=== PATIENT | female | born 1955 | race Caucasian/White ===

== ENCOUNTER 2017-06-24 11:47 | Emergency (ER) | payer OTHER, BC ==
[2017-06-24 12:01] VITALS: O2SAT 97
[2017-06-24 13:48] VITALS: RESP 18
--- NOTE | 2017-06-24 14:33 | EDPHY ---
H & P Stated Complaint: dark stools Time Seen by Provider: 06/24/17 14:13 HPI/ROS: CHIEF COMPLAINT: Black stool HISTORY OF PRESENT ILLNESS: The patient is a 62 y/o female with multiple sclerosis complaining of black stool and esophageal burning following coarse of Solumedrol last week. Early last week. While the patient was in [place], she woke up with urinary incontinence and paresthesias across her lower abdomen ; she states, "I can feel 10% of my bowel and bladder." "When I pee I have to sit every 2 hours and let the pee fall out." She was evaluated at a hospital in [place]. She reports that they did do imaging studies of MRIs of the entire spine and had no acute abnormalities. She then drove 30 hours from [place] to home and was seen at the [facility] at [facility] where she was evaluated for this. They performed multiple MRIs and treated her for a UTI with Ceftin and prescribed 1000mg orally Solumedrol on Friday, , and Friday and then told to return in 2 weeks. Patient reports that the oral Solu-Medrol caused a burning sensation from the esophagus into her abdomen. She was taking Pepto-Bismol to treat this discomfort. She now has noticed that her stools have been a "dark and charcoal- y ". Patient's complaints of paresthesias in the lower abdomen as well as difficulties with her bowel or bladder have not improved with the Solu-Medrol bolus. She describes little to no sensation in her bowel or bladder and has had to digitally remove stool. In general, for the last 4 days she has felt exhausted, dizzy, lightheaded, and near-syncopal when standing. Due to financial concerns, the patient tells me on number of occasions that she simply wants to be checked for possible GI hemorrhage. She will follow up with her MS physician regarding her neurologic symptoms of paresthesias and bowel or bladder difficulties. No aspirin or anticoagulant use, history of ulcer disease or reflux, or cardiac disease history. Reports a normal colonoscopy in the last few years. No fever, chills, chest pain, shortness of breath, palpitations, vomiting, diarrhea, headache, lightheadedness. REVIEW OF SYSTEMS: Aside from elements discussed in the HPI, a comprehensive 10-point review of systems was reviewed and is negative. PAST MEDICAL HISTORY: 1. Multiple Sclerosis - Lorazepam, Baclofen 2. Hypothyroidism 3. UTI SOCIAL HISTORY: Lives alone. Disabled. Recently moved to [place] from [place]. VITAL SIGNS: Reviewed by me. Vital signs are stable. GENERAL: Well-developed, well-nourished, resting comfortably in no respiratory distress. HEENT: Atraumatic. Eyes: No icterus, no injection. Mouth: moist mucous membranes. No pallor. No erythema or lesions. Neck: supple with no adenopathy. LUNGS: Clear to auscultation bilaterally, no wheezes, rhonchi or rales. CARDIAC: Regular rate and rhythm, no rubs, murmurs or gallops. ABDOMEN: Soft, nontender, nondistended, bowel sounds normal. RECTAL: No hemorrhoids. Markedly diminished rectal tone. No juan francisco blood. Small amount of dark black stool on the glove. BACK: No CVA tenderness. EXTREMITIES: No trauma. No edema. Range of motion is normal throughout. NEURO: Alert and oriented, grossly nonfocal. SKIN: Warm and dry, no rash. PSYCHIATRIC: Normal mentation, no agitation. Portions of this note were transcribed by a medical coding technician. I personally performed a history, physical exam, medical decision making, and confirmed accuracy of information the transcribed note. 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 - Social History Smoking Status: Never smoked Constitutional: Initial Vital Signs Temperature (C) 36.6 C 06/24/17 11:58 Heart Rate 95 06/24/17 11:58 Respiratory Rate 16 06/24/17 11:58 Blood Pressure 121/67 H 06/24/17 11:58 O2 Sat (%) 97 06/24/17 11:58 O2 Delivery Mode Room Air Allergies/Adverse Reactions: carbamazepine Allergy (Verified 10/25/15 10:12) gabapentin Allergy (Verified 10/25/15 10:12) latex Allergy (Verified 10/25/15 10:12) Sulfa (Sulfonamide Antibiotics) Allergy (Verified 06/24/17 11:56) Home Medications: Medication Instructions Recorded THYROID 08/10/14 LORAZEPAM 04/10/15 Baclofen 06/24/17 Ceftin 06/24/17 Oxybutynin 06/24/17 Prozac 10 MG (*) 06/24/17 Medical Decision Making ED Course/Re-evaluation: This is a 62 y/o female with multiple sclerosis who presents for evaluation of black stool over the last couple days since receiving oral high Solumedrol doses for abdominal and genital paresthesias last week and taking Peptobismol for reflux-like symptoms. Her rectal exam reveals no juan francisco blood or melena, but she has no rectal tone. She is declining work up here for anything other than the black stool. Plan for occult stool only. Occult stool is negative. Black stool likely due to her Peptobismol use. Reevaluated patient and again offered further investigation into her paresthesias and weakness, which she declined. I did discuss with the patient my concerns regarding her diminished rectal tone, and saddle anesthesia and paresthesias. Per her report she had an MRI performed at [facility] which did not demonstrate any acute abnormalities. She plans to call her MS specialist today to arrange follow up in the next 1-2 days. She is a competent decision maker. She understands that cauda equina as in the differential and that her condition could be quite serious and irreversible. Return precautions discussed. She is comfortable with this plan. Differential Diagnosis: Differential diagnoses for the patient's symptom complex was considered including but not limited to upper GI hemorrhage, lower GI hemorrhage, reflux, dark stool stool which is not Hemoccult-positive, melena, MS flare, cauda equina syndrome. Departure - Departure Disposition: Home, Routine, Self-Care Clinical Impression: Black stool Condition: Good Instructions: Bismuth Subsalicylate (By mouth) Additional Instructions: The emergency physician was concerned regarding your loss of rectal tone, inability to control urine, and persistent numbness and weakness across lower abdomen and genital region. This is potentially a very serious condition and potentially irreversible. Please follow up with your MS specialist in the next 1-2 days without fail. I recommend calling today to arrange this. Return to the ED for any worsening of condition or if you decide you would prefer further evaluation here for your numbness and incontinence. Referrals: Kevin Kurtz DO [Doctor of Osteopathy] - As per Instructions Report Scribed for: Mayra Gutierres Report Scribed by: Kisha Martinez Date of Report: 06/24/17 Time of Report: 14:34
[2017-06-24 15:13] VITALS: BP 154/73; PULSE 77; TEMP 98.1
== END 2017-06-24 15:14 | disposition home or self-care (01) ==
DX: K92.1 Melena (principal); J45.909 Unspecified asthma, uncomplicated; Z86.73 Personal history of transient ischemic attack (TIA), and cerebral infarction without residual deficits; Z91.040 Latex allergy status

== ENCOUNTER 2017-07-12 09:58 | Emergency (ER) | payer OTHER, BC ==
[2017-07-12 10:07] VITALS: RESP 16
--- NOTE | 2017-07-12 10:09 | EDPHY ---
HPI/HX/ROS/PE/MDM Narrative: CHIEF COMPLAINT: Weakness, shaking, nausea. HPI: This patient is a 62 year old female with history of MS complaining of weakness , shaking, and nausea. She has undergone recent emotional and physical stresses , and initially thought her symptoms were due to an MS exacerbation. On 06/08/17 , she was preparing to move from [place] to [place] and loading her belongings into a storage pod. She felt low back pain that night and woke with urinary incontinence, inability to feel her legs, and spasms in her pelvic region. She was evaluated at the [facility] 06/10/17. Brain and full spine MRI at that time showed no new lesions, inflammation, or herniated discs. 06/17/17 she was evaluated at her regular MS clinic at the [facility]. She was prescribed Methylprednisone 1000 mg PO for three days but her spasms and weakness did not resolve. Her MS provider referred to neurology at that time. 06/20 she visited her chiropractor and had a neck adjustment. Since that time, she has had headaches, jaw spasms, teeth chattering, and fatigue. She was evaluated 06/24/17 in this emergency department for possible melena, which turned out to be black stools due to Pepto-Bismol use. At that time, she had no sensation on rectal exam, but declined repeat MRI due to billing concerns. Friday night, the patient developed shaking and right-sided upper and lower extremity weakness. Last night, she developed pain in her left neck "in my carotid artery" which radiated to her back. She has history of stroke two years ago and was concerned regarding these symptoms. Additionally, on 07/03, she was building wooden shelves and struck in the head by 2x4. She had nausea before this incident, but vomited one hour following this. Currently she complains of shaking, nausea, and continued spasms across her pelvic region. Her feet are swollen, and she has difficulty feeling her legs from the knees down, but she was able to walk into the emergency department. She denies fever. She has history of recurrent UTIs and had UTI symptoms beginning yesterday. She has taken some leftover medication for this. No chest pain, shortness of breath, dizziness, or other associated symptoms. REVIEW OF SYSTEMS: Aside from elements discussed in the HPI, a comprehensive 10-point review of systems was reviewed and is negative. PMH: Multiple Sclerosis. Asthma. History of CVA. SOCIAL HISTORY: Homeless for 20 years. House-sits frequently. Single. PHYSICAL EXAM: General:Patient is alert, in no acute distress. ENT:Eyes are normal to inspection. ENT inspection normal. Neck: Normal inspection. Full range of motion. Respiratory:No respiratory distress. Breath sounds normal bilaterally. Cardiovascular: Regular rate and rhythm. Strong peripheral pulses. Normal cap refill. Abdomen:The abdomen is nontender to palpation. There are no peritoneal signs. There are normal bowel sounds. Back: Normal to inspection. No tenderness to palpation. Skin: Normal color. No rash. Warm and dry. Extremities: Normal appearance. Full range of motion. Neuro: Oriented x3. Normal motor function. Normal sensory function. No weakness of upper extremities. Normal gait. ED Course: 62 year old female with history of MS presents with multiple concerns. Exam unremarkable, she is neurologically intact. Discussed possibilities for testing including CT head, CTA head/neck. I recommended she undergo UA, flu test, and laboratory studies. She is scheduled to follow up with neurology on Friday, and declines imaging studies at this time as she prefers to follow up outpatient for these studies. She understands she is out of the treatment window for stroke e.g. TPA administration. UA positive for UTI. Laboratory studies otherwise unremarkable. Flu swab negative. 12:27 Reassessed patient. Discussed results. Plan to discharge home in good condition with prescription for Keflex. She will follow up with neurology on Friday as scheduled for further evaluation. She is comfortable with this plan. MDM: This patient presents with a fairly large range of symptoms, none of which are truly acute. I think the majority of them can be attributed to MS flare secondary to UTI, but she understands I cannot rule out CVA, spinal cord lesion or carotid/vertebral artery dissection without further testing, likely to include CTA. The patient declines any further testing however, and would like to follow-up with neurology. We discussed strict return precautions. - Data Points Laboratory Results: Laboratory Results 07/12/17 11:06 07/12/17 11:06 07/12/17 07/12/17 07/12/17 11:44 11:06 11:06 WBC 4.50 10^3/uL 10^3/uL (3.80-9.50) RBC 4.29 10^6/uL 10^6/uL (4.18-5.33) Hgb 12.9 g/dL g/dL (12.6-16.3) Hct 37.8 % L % (38.0-47.0) MCV 88.1 fL fL (81.5-99.8) MCH 30.1 pg pg (27.9-34.1) MCHC 34.1 g/dL g/dL (32.4-36.7) RDW 12.3 % % (11.5-15.2) Plt Count 241 10^3/uL 10^3/uL (150-400) MPV 9.0 fL fL (8.7-11.7) Neut % (Auto) 63.4 % % (39.3-74.2) Lymph % (Auto) 24.7 % % (15.0-45.0) [place] % (Auto) 9.1 % % (4.5-13.0) Eos % (Auto) 1.3 % % (0.6-7.6) Baso % (Auto) 1.3 % % (0.3-1.7) Nucleat RBC Rel Count 0.0 % % (0.0-0.2) Absolute Neuts (auto) 2.85 10^3/uL 10^3/uL (1.70-6.50) Absolute Lymphs (auto) 1.11 10^3/uL 10^3/uL (1.00-3.00) Absolute Monos (auto) 0.41 10^3/uL 10^3/uL (0.30-0.80) Absolute Eos (auto) 0.06 10^3/uL 10^3/uL (0.03-0.40) Absolute Basos (auto) 0.06 10^3/uL 10^3/uL (0.02-0.10) Absolute Nucleated RBC 0.00 10^3/uL 10^3/uL (0-0.01) Immature Gran % 0.2 % % (0.0-1.1) Immature Gran # 0.01 10^3/uL 10^3/uL (0.00-0.10) Sodium 143 mEq/L mEq/L (135-145) Potassium 4.1 mEq/L mEq/L (3.5-5.2) Chloride 108 mEq/L mEq/L (97-110) Carbon Dioxide 22 mEq/l mEq/l (22-31) Anion Gap 13 mEq/L mEq/L (8-16) BUN 18 mg/dL mg/dL (7-23) Creatinine 0.8 mg/dL mg/dL (0.6-1.0) Estimated GFR > 60 Glucose 113 mg/dL H mg/dL (70-100) Calcium 9.5 mg/dL mg/dL (8.5-10.4) Urine Color YELLOW Urine Appearance CLEAR Urine pH 5.0 (5.0-7.5) Ur Specific [place] 1.019 (1.002-1.030) Urine Protein NEGATIVE (NEGATIVE) Urine Ketones NEGATIVE (NEGATIVE) Urine Blood 2+ H (NEGATIVE) Urine Nitrate NEGATIVE (NEGATIVE) Urine Bilirubin NEGATIVE (NEGATIVE) Urine Urobilinogen NEGATIVE EU EU (0.2-1.0) Ur Leukocyte Esterase NEGATIVE (NEGATIVE) Urine RBC 1-3 /hpf /hpf (0-3) Urine WBC 3-5 /hpf H /hpf (0-3) Ur Epithelial Cells TRACE /lpf /lpf (NONE-1+) Urine Mucus 1+ /lpf /lpf (NONE-1+) Urine Glucose NEGATIVE (NEGATIVE) Nasal Influenza A PCR Nasal Influenza B PCR 07/12/17 11:06 WBC RBC Hgb Hct MCV MCH MCHC RDW Plt Count MPV Neut % (Auto) Lymph % (Auto) [place] % (Auto) Eos % (Auto) Baso % (Auto) Nucleat RBC Rel Count Absolute Neuts (auto) Absolute Lymphs (auto) Absolute Monos (auto) Absolute Eos (auto) Absolute Basos (auto) Absolute Nucleated RBC Immature Gran % Immature Gran # Sodium Potassium Chloride Carbon Dioxide Anion Gap BUN Creatinine Estimated GFR Glucose Calcium Urine Color Urine Appearance Urine pH Ur Specific [place] Urine Protein Urine Ketones Urine Blood Urine Nitrate Urine Bilirubin Urine Urobilinogen Ur Leukocyte Esterase Urine RBC Urine WBC Ur Epithelial Cells Urine Mucus Urine Glucose Nasal Influenza A PCR NEGATIVE FOR FLU A (NEGATIVE) Nasal Influenza B PCR NEGATIVE FOR FLU B (NEGATIVE) General Time Seen by Provider: 07/12/17 10:07 Initial Vital Signs: Initial Vital Signs Temperature (C) 36.7 C 07/12/17 10:03 Heart Rate 84 07/12/17 10:03 Respiratory Rate 16 07/12/17 10:03 Blood Pressure 111/89 H 07/12/17 10:03 O2 Sat (%) 96 07/12/17 10:03 O2 Delivery Mode Room Air Allergies/Adverse Reactions: carbamazepine Allergy (Verified 07/12/17 10:02) gabapentin Allergy (Verified 07/12/17 10:02) latex Allergy (Verified 07/12/17 10:02) Sulfa (Sulfonamide Antibiotics) Allergy (Verified 07/12/17 10:02) Home Medications: Medication Instructions Recorded THYROID 08/10/14 LORAZEPAM 04/10/15 Baclofen 06/24/17 Ceftin 06/24/17 Oxybutynin 06/24/17 Prozac 10 MG (*) 06/24/17 Cephalexin [Keflex] 500 mg PO TID #21 cap 07/12/17 Departure - Departure Disposition: Home, Routine, Self-Care Clinical Impression: Multiple sclerosis exacerbation UTI (urinary tract infection) Qualifiers: Urinary tract infection type: acute cystitis Hematuria presence: with hematuria Qualified Code(s): N30.01 - Acute cystitis with hematuria Condition: Good Instructions: Urinary Tract Infection in Women (ED), Multiple Sclerosis ([place]) Additional Instructions: Follow-up with your primary doctor in 2-3 days. Take Keflex as prescribed. It is possible that the bacteria causing your infection is resistant to the antibiotic we've placed you on. We have sent a urine for culture, if this comes back with a resistant bacteria, we will call you at the number you provided to us. Return to the Emergency Department for fever, worsening pain, flank pain or failure to improve within 72 hours. Follow up with neurology on Friday as scheduled. Referrals: Jose A Muller DO [Medical Doctor] - As per Instructions Prescriptions: Cephalexin [Keflex] 500 mg PO TID #21 cap Report Scribed for: Tamir Rojas Report Scribed by: Dia Tran Date of Report: 07/12/17 Time of Report: 10:09 Physician Review and Approval Statement: Portions of this note were transcribed by an ED scribe. I personally performed the history, physical exam, and medical decision making; and confirm the accuracy of the information in the transcribed note.
[2017-07-12 11:09] LABS: PLATELET COUNT 241 10^3/uL (150-400)
[2017-07-12 13:11] VITALS: BP 138/76; PULSE 81; TEMP 97.9; O2SAT 97
== END 2017-07-12 13:11 | disposition home or self-care (01) ==
DX: G35 Multiple sclerosis (principal); N30.01 Acute cystitis with hematuria; Z91.040 Latex allergy status

== ENCOUNTER → 2017-07-29 | Outpatient (CLI) | payer OTHER, BC | LOC: FIMAGING 15:52 | PROVIDERS: ATTEND Internal Medicine | DX: K59.00 Constipation, unspecified (principal); R20.0 Anesthesia of skin; R06.02 Shortness of breath; G35 Multiple sclerosis ==

== ENCOUNTER → 2017-07-30 | Outpatient (CLI) | payer OTHER, BC | LOC: CIMAGING 12:36 | PROVIDERS: ATTEND Internal Medicine | DX: N85.8 Other specified noninflammatory disorders of uterus (principal); E03.9 Hypothyroidism, unspecified; M62.838 Other muscle spasm | CPT/HCPCS: 76856-PO ==

== ENCOUNTER → 2018-09-16 | Outpatient (CLI) | payer OTHER, BC | LOC: GIMAGING 14:58 | PROVIDERS: ATTEND Internal Medicine | DX: R07.89 Other chest pain (principal) | CPT/HCPCS: 71046-PO ==

== ENCOUNTER 2018-11-03 09:57 | Emergency (ER) | payer OTHER, BC ==
[2018-11-03] MEDS ORDERED: NS 500 ML IV ONE (10:26)
[2018-11-03 10:33] LABS: PLATELET COUNT 201 10^3/uL (150-400)
[2018-11-03 10:47] LABS: CREATINE KINASE 49 IU/L (0-156)
[2018-11-03] MEDS ORDERED: IOPAMIDOL (ISOVUE 370) 100 ML BTL IV ONE (11:58)
--- NOTE | 2018-11-03 13:43 | EDPHY ---
H & P Stated Complaint: cp Time Seen by Provider: 11/03/18 10:08 HPI/ROS: CHIEF COMPLAINT: Chest pain, headache, left-sided weakness HISTORY OF PRESENT ILLNESS: This is a 63-year-old female with a history of multiple sclerosis as well as a CVA in April of 2015 who presents reporting that she developed chest pain 3 days ago. Pain was sharp, midsternal, associated with nausea, diaphoresis, and radiate up into her chin. She felt overall weak. Pain lasted about 6 hr in gradually receded. The next day the patient reported that she developed a headache in the frontal area as well as in the occipital area begin to note that her left side was weak. She also reports ongoing fatigue. She did not seek care as she was dog sitting a friend' s dog and had no one else to watch the animal. Patient has no coronary artery disease history, no history of PEs. She reports that her MS occasional cause flares which resulted in extremity weakness. No family history of early coronary artery disease. Patient denies any recent fevers or chills, cold symptoms, cough, runny nose. Denies any abdominal pain, nausea, vomiting, or diarrhea. REVIEW OF SYSTEMS: A comprehensive 10 system review of systems was reviewed and is otherwise negative aside from elements mentioned in the history of present illness and medical decision making. PAST MEDICAL HISTORY: MS, asthma, urinary tract infection, CVA. SOCIAL HISTORY: Nonsmoker. VITAL SIGNS Reviewed by me. Afebrile, blood pressure 120/84, heart rate 84. GENERAL: Well-developed, well-nourished, resting comfortably in no respiratory distress. Reports headache. Reports mild substernal chest discomfort at 3/10. No change with respiration. HEENT: Atraumatic. Eyes: No icterus, no injection. No nystagmus. Mouth: moist mucous membranes. No erythema or lesions. Neck: supple with no adenopathy. No bruit. LUNGS: Clear to auscultation bilaterally, no wheezes, rhonchi or rales. CARDIAC: Regular rate and rhythm, no rubs, murmurs or gallops. ABDOMEN: Soft, nontender, nondistended, bowel sounds normal. BACK: No CVA tenderness. EXTREMITIES: No trauma. No edema. Range of motion is normal throughout. NEURO: [Alert and oriented, 4/5 strength in the left upper extremity and left lower extremity. Sensation is intact to light touch. Cranial nerves 2-12 are intact. SKIN: Warm and dry, no rash. PSYCHIATRIC: Normal mentation, no agitation. - Personal History Current Tetanus/Diphtheria Vaccine: No Current Tetanus Diphtheria and Acellular Pertussis (TDAP): No Tetanus Vaccine Date: < 10 YEARS - Medical/Surgical History Hx Asthma: Yes Hx Chronic Respiratory Disease: No Hx Diabetes: No Hx Cardiac Disease: No Hx Renal Disease: No Hx Cirrhosis: No Hx Alcoholism: No Hx HIV/AIDS: No Hx Splenectomy or Spleen Trauma: No Other PMH: Multiple sclerosis, asthma, "sporadic vocal cord paralysis" of unknown etilology, urinary tract ecoli, CVA 04/23 - Social History Smoking Status: Never smoked Constitutional: Initial Vital Signs Temperature (C) 37.3 C 11/03/18 10:04 Heart Rate 84 11/03/18 10:04 Respiratory Rate 16 11/03/18 10:04 Blood Pressure 120/84 H 11/03/18 10:04 O2 Sat (%) 97 11/03/18 10:04 O2 Delivery Mode Room Air Allergies/Adverse Reactions: amantadine Allergy (Verified 11/03/18 10:03) carbamazepine Allergy (Verified 07/12/17 10:02) ciprofloxacin Allergy (Verified 11/03/18 10:03) ephedrine Allergy (Verified 11/03/18 10:03) epinephrine Allergy (Verified 11/03/18 10:03) gabapentin Allergy (Verified 07/12/17 10:02) latex Allergy (Verified 07/12/17 10:02) levothyroxine Allergy (Verified 11/03/18 10:03) nitrofurantoin Allergy (Verified 11/03/18 10:03) Sulfa (Sulfonamide Antibiotics) Allergy (Verified 07/12/17 10:02) Home Medications: Medication Instructions Recorded LORAZEPAM 04/10/15 Baclofen 06/24/17 Nature Thyroid 11/03/18 Medical Decision Making - Diagnostics EKG Interpretation: 12-LEAD EKG: Please see the full report in [facility]. My interpretation: Normal sinus rhythm, no ST or T-wave changes Imaging Results: Imaging Impressions Chest X-Ray 11/03/18 10:27 Impression: No acute abnormality. Head CT 11/03/18 10:27 Impression: Nothing acute. Findings and recommendations discussed with Mayra Gutierres MD at 11:20 AM hour , 11/03/2018. Final report concurs with initial preliminary interpretation. Head CTA 11/03/18 11:50 Impression: Normal. Findings and recommendations discussed with Mayra Gutierres MD at 1:00 PM hour , 11/03/2018. Final report concurs with initial preliminary interpretation. Neck CTA 11/03/18 11:50 Impression: Normal. Findings and recommendations discussed with Mayra Gutierres MD at 1:00 PM hour , 11/03/2018. Final report concurs with initial preliminary interpretation. Note: All stenoses are calculated using NASCET Criteria. Imaging: Discussed imaging studies w/ scallop shucker Radiologist ED Course/Re-evaluation: 63-year-old female presenting with chest pain as well as headache and left- sided weakness. Bedside troponin is normal. Head CT is negative for any acute findings. Laboratory evaluation largely unremarkable. Discussed with the patient the possibility of admission the hospital for further evaluation of her chest pain and possible CVA. She asked that angiograms be performed and she had the ability to speak to her neurologist. CT angiograms of the neck and head were negative for any acute findings. At this point I held a long discussion with the patient regarding her symptoms. She thinks that this may be a MS flare. While I agree that an MS flare is in the differential, I believe the patient may also have suffered an acute stroke. I after the patient admission to the hospital for further evaluation including a potential MRI. Patient has asked to call her neurologist in [place]. Patient was unable to contact her neurologist in [place]. She has an appointment tomorrow with [facility]. She understands my concerns that this may have been a stroke and that evaluation including prolonged monitoring as well as echocardiogram are indicated. She will range echocardiogram with [facility]. She feels that this may be a MS flare. I recommend that she begin taking 81 mg of aspirin a day. Again, after multiple long discussions with the patient, is clear to me that she understands my recommendations regarding admission to the hospital. She is hesitant to do for number of reasons and asked to be discharged. Patient does have follow-up appointments and reports that she will return to the emergency department if she has any worsening of her symptoms. Differential Diagnosis: Differential diagnosis of the patient's presenting complaints were considered including but not limited to coronary artery disease, cardiac ischemia, pulmonary embolism, chest wall pain, gastrointestinal causes, MS flare, stroke, TIA, anxiety, electrolyte abnormalities. - Data Points Laboratory Results: Laboratory Results 11/03/18 10:16 11/03/18 10:16 11/03/18 11/03/18 11/03/18 10: 10:16 10:16 WBC RBC Hgb Hct MCV MCH MCHC RDW Plt Count MPV Neut % (Auto) Lymph % (Auto) Aurora % (Auto) Eos % (Auto) Baso % (Auto) Nucleat RBC Rel Count Absolute Neuts (auto) Absolute Lymphs (auto) Absolute Monos (auto) Absolute Eos (auto) Absolute Basos (auto) Absolute Nucleated RBC Immature Gran % Immature Gran # D-Dimer 0.50 ug/mLFEU ug/mLFEU (0.00-0.50) Sodium 139 mEq/L mEq/L (135-145) Potassium 4.0 mEq/L mEq/L (3.5-5.2) Chloride 105 mEq/L mEq/L (97-110) Carbon Dioxide 25 mEq/l mEq/l (22-31) Anion Gap 9 mEq/L mEq/L (6-14) BUN 17 mg/dL mg/dL (7-23) Creatinine 0.9 mg/dL mg/dL (0.6-1.0) Estimated GFR > 60 Glucose 105 mg/dL H mg/dL (70-100) Calcium 9.3 mg/dL mg/dL (8.5-10.4) Creatine Kinase 49 IU/L IU/L (0-156) CK-MB (CK-2) Fraction 0.38 ng/mL ng/mL (0.00-4.55) POC Troponin I 0.01 ng/mL ng/mL (0.00-0.08) 11/03/18 10:16 WBC 5.20 10^3/uL 10^3/uL (3.80-9.50) RBC 4.89 10^6/uL 10^6/uL (4.18-5.33) Hgb 14.7 g/dL g/dL (12.6-16.3) Hct 43.6 % % (38.0-47.0) MCV 89.2 fL fL (81.5-99.8) MCH 30.1 pg pg (27.9-34.1) MCHC 33.7 g/dL g/dL (32.4-36.7) RDW 11.8 % % (11.5-15.2) Plt Count 201 10^3/uL 10^3/uL (150-400) MPV 9.5 fL fL (8.7-11.7) Neut % (Auto) 57.1 % % (39.3-74.2) Lymph % (Auto) 32.1 % % (15.0-45.0) Aurora % (Auto) 8.3 % % (4.5-13.0) Eos % (Auto) 1.0 % % (0.6-7.6) Baso % (Auto) 1.3 % % (0.3-1.7) Nucleat RBC Rel Count 0.0 % % (0.0-0.2) Absolute Neuts (auto) 2.97 10^3/uL 10^3/uL (1.70-6.50) Absolute Lymphs (auto) 1.67 10^3/uL 10^3/uL (1.00-3.00) Absolute Monos (auto) 0.43 10^3/uL 10^3/uL (0.30-0.80) Absolute Eos (auto) 0.05 10^3/uL 10^3/uL (0.03-0.40) Absolute Basos (auto) 0.07 10^3/uL 10^3/uL (0.02-0.10) Absolute Nucleated RBC 0.00 10^3/uL 10^3/uL (0-0.01) Immature Gran % 0.2 % % (0.0-1.1) Immature Gran # 0.01 10^3/uL 10^3/uL (0.00-0.10) D-Dimer Sodium Potassium Chloride Carbon Dioxide Anion Gap BUN Creatinine Estimated GFR Glucose Calcium Creatine Kinase CK-MB (CK-2) Fraction POC Troponin I Medications Given: Discontinued Medications Sodium Chloride (Ns) 500 mls @ 1,000 mls/hr IV EDNOW ONE PRN Reason: Protocol Stop: 11/03/18 10:55 Last Admin: 11/03/18 10:46 Dose: 500 mls Point of Care Test Results: Chemistry 11/03/18 10:19 POC Troponin I 0.01 ng/mL ng/mL (0.00-0.08) Departure - Departure Disposition: Home, Routine, Self-Care Clinical Impression: Possible CVA Chest pain Qualifiers: Chest pain type: unspecified Qualified Code(s): R07.9 - Chest pain, unspecified Condition: Good Instructions: Chest Pain (ED), Stroke (DC) Additional Instructions: Follow-up tomorrow as previously scheduled. I recommend you begin taking aspirin 81 mg daily. Please return to the emergency department or seek care urgently if you develop any worsening weakness in your arms or legs, word-finding difficulties, slurred speech, visual complaints, fainting, palpitations, or other concerns. Referrals: Maci Ch MD [Primary Care Provider] - As per Instructions
[2018-11-03 13:47] VITALS: BP 169/88
--- NOTE | 2018-11-03 14:52 | CPEKG ---
Test Reason : OPEN Blood Pressure : / mmHG Vent. Rate : 081 BPM Atrial Rate : 080 BPM P-R Int : 137 ms QRS Dur : 098 ms QT Int : 371 ms P-R-T Axes : 071 072 053 degrees QTc Int : 431 ms Sinus rhythm Confirmed by Mayra Gutierres ([id number]) on 11/03/2018 2:51:57 PM Referred By: Mayra Gutierres Confirmed By:Mayra Gutierres
== END 2018-11-03 14:22 | disposition home or self-care (01) ==
DX: R07.9 Chest pain, unspecified (principal); R51 Headache; E86.9 Volume depletion, unspecified; G35 Multiple sclerosis; Z86.73 Personal history of transient ischemic attack (TIA), and cerebral infarction without residual deficits
CPT/HCPCS: 70450; 70496; 70498; 71046; 93005; 96360; 99285; Q9967; 84484-ER